=== PATIENT | female | born 2000 | race Caucasian/White ===

== ENCOUNTER 2024-01-13 10:01 | Emergency (ER) | payer MEDICAID ==
[~2024-01-13] VITALS: Ht 162.6 cm; Wt 50.0 kg
[2024-01-13 10:05] VITALS: TEMP 98; O2SAT 98
[2024-01-13 10:31] LABS: BASOPHILS % 0.8 % (0.0-2.0); EOSINOPHILS % 0.3 % (0.0-5.0); HEMATOCRIT. 29.6 % (36.0-48.0); HEMOGLOBIN. 9.6 g/dL (12.0-16.0); LYMPHOCYTES % 14.9 % (20.0-50.0); MEAN CORPUSCULAR HEMOGLOBIN 26.3 pg (28.0-32.0); MEAN CORPUSCULAR HGB CONC 32.6 g/dL (31.0-37.0); MEAN CORPUSCULAR VOLUME 80.8 fL (81.0-99.0); MEAN PLATELET VOLUME 10.4 fl (7.4-10.4); MONOCYTES % 7.8 % (2.0-8.0); NEUTROPHILS % 76.2 % (40.0-76.0); PLATELET 161 x1000/uL (130-400); RED BLOOD CELL COUNT 3.66 mill/uL (4.2-5.4); RED CELL DISTRIBUTION WIDTH 25.6 % (11.6-14.6); WHITE BLOOD COUNT 5.1 x1000/uL (4.5-11.0)
[2024-01-13 10:36] LABS: DIFFERENTIAL COMMENT 1
[2024-01-13] MEDS: SODIUM CHLORIDE 0.9% 1,000 ML IV ONE (10:36)
[2024-01-13 10:37] LABS: ADD RBC MORPHOLOGY YES
[2024-01-13 10:39] LABS: CHLORIDE 102 mEq/L (98-107); POTASSIUM 3.2 mEq/L (3.5-5.1); SODIUM 139 mEq/L (136-145)
[2024-01-13 10:40] LABS: CARBON DIOXIDE 21 mEq/L (21-32)
[2024-01-13 10:41] LABS: CALCIUM 9.5 mg/dL (8.7-10.4); INR 1.1; PROTHROMBIN TIME 11.9 sec (9.6-11.0)
[2024-01-13 10:46] LABS: GLUCOSE 239 mg/dL (70-105); UREA NITROGEN BLOOD 13 mg/dL (9-23)
[2024-01-13 11:15] LABS: ANISOCYTOSIS 2+; MICROCYTOSIS 1+; PLATELET ESTIMATE NORMAL
[2024-01-13 12:03] VITALS: BP 142/86; PULSE 88; RESP 15
== END 2024-01-13 12:52 | disposition home or self-care (01) ==
LOC: ER 10:01
DX: D64.9 Anemia, unspecified (principal); E11.9 Type 2 diabetes mellitus without complications; I10 Essential (primary) hypertension; E03.9 Hypothyroidism, unspecified; Z98.890 Other specified postprocedural states; F32.A Depression, unspecified
CPT/HCPCS: 80048; 85025; 85610; 86850; 86900; 86901; 36415; 71045; 96360; 99285; J7030; Z7610 ×2